=== PATIENT | female | born 1965 | race Caucasian/White ===

== ENCOUNTER → 2018-04-28 | Outpatient (CLI) | payer OTHER ==
[~2018-04-28] MED LIST: AMO500 PO; ESC10 PO; LEVOTHYROXIN
--- NOTE | 2018-04-28 17:36 | RADIOLOGY IMAGING REPORT ---
FACILITY: [facility] [place] PATIENT NAME: Xenia Dexter : 1965 MR: [id number] V: [id number] EXAM DATE: ORDERING PHYSICIAN: DAMARI KAUR TECHNOLOGIST: Location: [facility] - [place], [place] Patient: Xenia Dexter : 1965 Visit/Account:[id number] Date of Sevice: 04/28/2018 CHEST PA LAT INDICATION: Cough COMPARISON: None available FINDINGS: Heart size within normal limits. There is no focal infiltrate or lobar consolidation. There is no pneumothorax or pleural effusion. IMPRESSION: 1. No acute cardiopulmonary process. Report Dictated By: Miguel Pride at 04/28/2018 5:26 PM Report E-Signed By: Miguel Pride at 04/28/2018 5:27 PM WSN:[id number]
== END ==
LOC: RAD 15:35
PROVIDERS: ATTEND Family Medicine
DX: R05 Cough (principal)
CPT/HCPCS: 71046